=== PATIENT | male | born 1975 | race Caucasian/White ===

== ENCOUNTER → 2019-05-11 | Outpatient (CLI) | payer BC ==
--- NOTE | 2019-05-11 15:09 | US ---
EXAMINATION TYPE: US thyroid st tissue head/neck DATE OF EXAM: 05/11/2019 COMPARISON: NONE CLINICAL HISTORY: A. Patient states having right neck swelling. Patient states he is on antibiotics and swelling has gone down. Area of swelling and concern scanned at right neck. Contralateral images taken. Multiple lymph node appearing lesions seen at right neck, largest=2.2 x 1.3 x 0.9 cm. Parotid gland v isualized and does appear larger in size compared to contralateral side. Portion of the right paroti d gland as measured at 2.6 x 1.8 cm, larger than on the left that measures 1.9 x 1.2 cm. There is als o abnormal echogenicity of the right parotid gland. IMPRESSION: Abnormal echogenicity and asymmetric enlargement of the right parotid gland in compariso n to the left, most commonly representing sialoadenitis. Prominent but nonenlarged surrounding lymph nodes are seen measuring up to 9 mm in short axis.
== END | disposition home or self-care (01) ==
LOC: RADUSWWP 14:17
PROVIDERS: ATTEND Family Medicine
DX: K11.20 Sialoadenitis, unspecified (principal)
CPT/HCPCS: 76536

== ENCOUNTER 2020-07-13 09:45 | Emergency (ER) | payer BC ==
[2020-07-13 09:50] VITALS: TEMP 98.1
[2020-07-13] MEDS ORDERED: HYDROmorphone 1 MG/ML 1 ML SYRINGE IVP STA (09:59)
[2020-07-13] MEDS ORDERED: ONDANSETRON 4 MG/2 ML VIAL IVP STA (09:59)
[2020-07-13] MEDS ORDERED: SODIUM CHLORIDE 0.9% 500 ML 500 ML IV STA (09:59)
--- NOTE | 2020-07-13 10:02 | ED ---
General Adult HPI - General Chief complaint: Abdominal Pain Stated complaint: abd pain Time Seen by Provider: 07/13/20 09:50 Source: patient, RN notes reviewed, old records reviewed Mode of arrival: ambulatory Limitations: no limitations - History of Present Illness Initial comments: This is a 45-year-old male who presents emergency Department stating last night he had a little bit of abdominal pain but he woke up this morning and about one hour ago he started having severe upper abdominal pain. Patient states he also noticed a lump there. Patient states about 6 months ago he noticed at one time but it did not stay. Patient states she did not follow up because of COVID. Patient denies any nausea vomiting per patient denies any radiation of the pain. Patient denies any diarrhea. Patient denies any previous abdominal surgeries. Patient denies any chest pain difficulty breathing shortness of breath. - Related Data Home Medications Medication Instructions Recorded Confirmed Etanercept [Enbrel Mini] 50 mg SQ Q7D 07/13/20 07/13/20 Allergies Allergy/AdvReac Type Severity Reaction Status Date / Time No Known Allergies Allergy Verified 07/13/20 10:26 Review of Systems ROS Statement: Those systems with pertinent positive or pertinent negative responses have been documented in the HPI. ROS Other: All systems not noted in ROS Statement are negative. Past Medical History Additional Past Medical History / Comment(s): RA History of Any Multi-Drug Resistant Organisms: None Reported Past Surgical History: No Surgical Hx Reported Past Psychological History: No Psychological Hx Reported Smoking Status: Current every day smoker Past Alcohol Use History: Occasional Past Drug Use History: Marijuana General Exam - General Exam Comments Initial Comments: GENERAL: Patient is well-developed and well-nourished. Patient is nontoxic and well-hy drated and is in mild distress. ENT: Neck is soft and supple. No significant lymphadenopathy is noted. Oropharynx is clear. Moist mucous membranes. Neck has full range of motion without eliciting any pain. EYES: The sclera were anicteric and conjunctiva were pink and moist. Extraocular move ments were intact and pupils were equal round and reactive to light. Eyelids were unremarkable. PULMONARY: Unlabored respirations. Good breath sounds bilaterally. No audible rales rhonchi or wheezing was noted. CARDIOVASCULAR: There is a regular rate and rhythm without any murmurs gallops or rubs. ABDOMEN: Epigastric region was extremely tender to palpate. Patient also had a lump in that area consistent with a ventral hernia. SKIN: Skin is clear with no lesions or rashes and otherwise unremarkable. NEUROLOGIC: Patient is alert and oriented x3. Cranial nerves II through XII are grossly intact. Motor and sensory are also intact. Normal speech, volume and content. Symmetrical smile. MUSCULOSKELETAL: Normal extremities with adequate strength and full range of motion. No lower extremity swelling or edema. No calf tenderness. LYMPHATICS: No significant lymphadenopathy is noted PSYCHIATRIC: Normal psychiatric evaluation. Limitations: no limitations Course Vital Signs 07/13/20 07/13/20 09:47 11:14 Temperature 98.1 F Pulse Rate 75 81 Respiratory 18 16 Rate Blood Pressure 175/119 150/99 O2 Sat by Pulse 98 99 Oximetry Medical Decision Making - Medical Decision Making Patient had what appeared to be a ventral hernia in the epigastric region. After the patient came back from CAT scan and I had him lying flat with his knee s up and the hernia reduced and he was no longer in pain. CAT scan did show a hernia in the epigastric region but there was no bowel entrapment and the hernia at this time. Patient is aware that he needs follow-up with Dr. Blackwell to get this hernia repair. - Lab Data Result diagrams: 07/13/20 10:12 07/13/20 10:12 Lab Results 07/13/20 07/13/20 07/13/20 Range/Units 10:12 10:12 10:12 WBC 7.1 (3.8-10.6) k/uL RBC 5.51 (4.30-5.90) m/uL Hgb 16.8 (13.0-17.5) gm/dL Hct 53.3 H (39.0-53.0) % MCV 96.8 (80.0-100.0) fL MCH 30.6 (25.0-35.0) pg MCHC 31.6 (31.0-37.0) g/dL RDW 13.1 (11.5-15.5) % Plt Count 241 (150-450) k/uL Neutrophils % 55 % Lymphocytes % 29 % Monocytes % 8 % Eosinophils % 5 % Basophils % 1 % Neutrophils # 3.9 (1.3-7.7) k/uL Lymphocytes # 2.0 (1.0-4.8) k/uL Monocytes # 0.6 (0-1.0) k/uL Eosinophils # 0.3 (0-0.7) k/uL Basophils # 0.1 (0-0.2) k/uL Sodium 137 (137-145) mmol/L Potassium 4.8 (3.5-5.1) mmol/L Chloride 107 (98-107) mmol/L Carbon Dioxide 26 (22-30) mmol/L Anion Gap 4 mmol/L BUN 13 (9-20) mg/dL Creatinine 1.16 (0.66-1.25) mg/dL Est GFR (CKD-EPI)AfAm 87 (>60 ml/min/1.73 sqM) Est GFR (CKD-EPI)NonAf 75 (>60 ml/min/1.73 sqM) Glucose 105 H (74-99) mg/dL Plasma Lactic Acid Elmer 1.4 (0.7-2.0) mmol/L Calcium 9.9 (8.4-10.2) mg/dL Total Bilirubin 0.6 (0.2-1.3) mg/dL AST 25 (17-59) U/L ALT 28 (4-49) U/L Alkaline Phosphatase 134 H (38-126) U/L Total Protein 7.2 (6.3-8.2) g/dL Albumin 4.2 (3.5-5.0) g/dL Amylase 69 (30-110) U/L Lipase 211 (23-300) U/L Disposition Clinical Impression: Ventral hernia Disposition: HOME SELF-CARE Condition: Good Instructions (If sedation given, give patient instructions): Ventral Hernia (ED) Is patient prescribed a controlled substance at d/c from ED?: No Referrals: Santhosh Baker DO [Primary Care Provider] - 1-2 days Danielito Blackwell MD [STAFF PHYSICIAN] - 1-2 days Time of Disposition: 11:20
[2020-07-13 10:27] LABS: Basophils # (A) 0.1 k/uL (0-0.2); Basophils % (A) 1 %; Eosinophils # (A) 0.3 k/uL (0-0.7); Eosinophils % (A) 5 %; HCT 53.3 % (39.0-53.0); HGB 16.8 gm/dL (13.0-17.5); Lymphocytes % (A) 29 %; MCH 30.6 pg (25.0-35.0); MCHC 31.6 g/dL (31.0-37.0); MCV 96.8 fL (80.0-100.0); Mean Platelet Volume 8.2; Monocytes # (A) 0.6 k/uL (0-1.0); Monocytes % (A) 8 %; Neutrophils # (A) 3.9 k/uL (1.3-7.7); Neutrophils % (A) 55 %; Platelet Count 241 k/uL (150-450); RBC 5.51 m/uL (4.30-5.90); RDW 13.1 % (11.5-15.5); WBC 7.1 k/uL (3.8-10.6)
[2020-07-13 10:35] LABS: Albumin 4.2 g/dL (3.5-5.0); Calcium 9.9 mg/dL (8.4-10.2); Potassium 4.8 mmol/L (3.5-5.1); Total Bilirubin 0.6 mg/dL (0.2-1.3); Total Protein 7.2 g/dL (6.3-8.2)
[2020-07-13 11:17] VITALS: BP 150/99; PULSE 81; RESP 16
--- NOTE | 2020-07-13 11:20 | CT ---
EXAMINATION TYPE: CT abdomen pelvis w con DATE OF EXAM: 07/13/2020 COMPARISON: None. HISTORY: Abdominal pain, right upper quadrant CT DLP: 1009.2 mGycm, Automated Exposure Control for Dose Reduction was Utilized. CONTRAST: CT scan of the abdomen and pelvis is performed without oral but with with IV Contrast, patient inject ed with 100 ml mL of Isovue 300. FINDINGS: LUNG BASES: Dependent atelectasis both bases. LIVER/GB: Visualized liver hypodense relative to the spleen consistent with mild diffuse fatty infilt ration. PANCREAS: No significant abnormality is seen. SPLEEN: No significant abnormality is seen. ADRENALS: No significant abnormality is seen. KIDNEYS: Symmetric corticomedullary uptake and excretion without hydronephrosis seen bilaterally. BOWEL: Small sized hiatal hernia. Suboptimal evaluation of bowel without enteric contrast. No suspici ous small or large bowel dilatation is seen. Terminal ileum appears within normal limits extending po steriorly. There is abnormal thickening of the base of the appendix up to 13 mm on axial image 60 wit h mild to moderate linear mucosal enhancement and mucosal wall thickening thought present. Appendix i s seen extending posteriorly from the base of cecum with tapering towards the tip. Mild wall irregula rity without significant surrounding fat stranding or fluid noted. PROSTATE/SEMINAL VESICLES: Prostate gland upper limits of normal bulging on bladder base. LYMPH NODES: No greater than 1cm abdominal or pelvic lymph nodes are appreciated. OSSEOUS STRUCTURES: Mild to moderate disc space narrowing and moderate anterior spurring at L5-S1 lev el. OTHER: In the anterior abdominal wall epigastric region there is a tiny fat-containing hernia axial i mage 31 with mild surrounding fat stranding. Just inferior to this to the left of midline there is se cond fat-containing hernia above the umbilicus seen best coronal image 7. There is moderate-sized umb ilical hernia containing fat and tiny mesenteric vessels axial image 50. IMPRESSION: 1. Mild fat stranding is present in the anterior midline epigastric fat-containing ventral wall herni a could reflect product of resolving inflammation or ischemia. 2. Abnormal appearance of the appendix as detailed above without significant surrounding fat strandin g or inflammation, acute appendicitis cannot be excluded in the appropriate clinical setting. ER doct or says patient's findings and lab work up do not correlate.
[2020-07-13 11:24] LABS: Appearance,Urine Clear (Clear); Bilirubin,Urine Negative (Negative); Blood,Urine Negative (Negative); Color,Urine Light Yellow; Glucose,Urine (UA) Negative (Negative); Ketones,Urine Negative (Negative); Leukocyte Esterase,Urine Negative (Negative); Nitrite,Urine Negative (Negative); PH, Urine 7.5 (5.0-8.0); Protein,Urine Negative (Negative); Urobilinogen,Urine <2.0 mg/dL (<2.0)
== END 2020-07-13 11:23 | disposition home or self-care (01) ==
LOC: EC 09:45
DX: K43.9 Ventral hernia without obstruction or gangrene (principal); M06.9 Rheumatoid arthritis, unspecified; F17.200 Nicotine dependence, unspecified, uncomplicated; Z79.899 Other long term (current) drug therapy
CPT/HCPCS: 36415; 80053; 82150; 83605; 83690; 85025; 81003; 74177; 99284; 96374; 96375; 96361; J2405; J1170; Q9967

== ENCOUNTER 2020-08-14 06:38 | Day surgery (SDC) | payer BC ==
[2020-08-13 08:26] VITALS: BMI 24.7
[~2020-08-14 06:38] MED LIST: ACETAMINOPHEN TAB 500 MG TAB PO PRN; DEXAMETHASONE SOD PHOSPHATE 4 MG/ML 1 ML VIAL IV ONE; HEPARIN SODIUM,PORCINE 5,000 UNIT/ML 1 ML VIAL SQ PRN; LACTATED RINGERS 1,000 ML IV SCH; ONDANSETRON 4 MG/2 ML VIAL IVP ONE
[2020-08-14] MEDS ORDERED: LIDOCAINE 1% (10MG/ML) FOR IV START INTRADERMA ONE (07:26)
[2020-08-14] MEDS ORDERED: MIDAZOLAM 2 MG/2 ML VIAL IVP ONE (08:00)
[2020-08-14] MEDS ORDERED: fentaNYL (PF) 50 MCG/ML 2 ML AMP IVP ONE (08:01)
--- NOTE | 2020-08-14 08:16 | P.ANPRN ---
Procedure Note - Anesthesia - Nerve Block Performed Bilateral Rectus Abdominis Single Time Out Performed: Yes Date of Procedure: 08/14/20 Procedure Start Time: 07:59 Procedure Stop Time: 08:08 Location of Patient: PreOp Indication: Requested by Surgeon Specifically requested for management of pain by DrSilvia: Danielito Blackwell Sedation Type: Sedate with meaningful contact maintained Preparation: Sterile Prep Position: Supine Needle Types: Pajunk Needle Gauge: 21 Ultrasound used to visualize needle placement: Yes Ultrasound used to observe medication spread: Yes Injectate: 0.5% Ropivacaine (see comment for volume) (20 ml per side + Dexamethason 4 mg per side) Blood Aspirated: No Pain Paresthesia on Injection Noted: No Resistance on Injection: Normal Image Stored and Saved: Yes Events: Uneventful and Well Tolerated
--- NOTE | 2020-08-14 08:31 | P.GSHP ---
History of Present Illness H&P Date: 08/14/20 Chief Complaint: Umbilical and ventral hernia This a 45-year-old male who presents today for laparoscopic robotic-assisted repair of umbilical and ventral hernia. Past Medical History Past Medical History: GERD/Reflux, Hypertension, Rheumatoid Arthritis (RA) Additional Past Medical History / Comment(s): no Rx for BP, History of Any Multi-Drug Resistant Organisms: None Reported Past Surgical History: Adenoidectomy, Tonsillectomy Past Anesthesia/Blood Transfusion Reactions: No Reported Reaction Smoking Status: Current every day smoker - Past Family History Mother Family Medical History: No Reported History Medications and Allergies Home Medications Medication Instructions Recorded Confirmed Type Vitamin C(Dose Unknown) 1 tab PO DAILY 08/13/20 08/14/20 History Allergies Allergy/AdvReac Type Severity Reaction Status Date / Time No Known Allergies Allergy Verified 08/14/20 07:09 Surgical - Exam Vital Signs Temp Pulse Resp BP Pulse Ox 98.0 F 69 16 147/95 97 08/14/20 07:12 08/14/20 07:12 08/14/20 07:12 08/14/20 07:12 08/14/20 07:12 - General well developed, well nourished, no distress - Eyes PERRL - ENT normal pinna - Neck no masses - Respiratory normal expansion - Cardiovascular Rhythm: regular - Abdomen Abdomen: soft, non tender Hernia: epigastric (3 cm reducible), umbilical (2 cm) Assessment and Plan Assessment: Umbilical and ventral hernia. We'll perform laparoscopic robotic-assisted repair.
[2020-08-14] MEDS ORDERED: DEXAMETHASONE SOD PHOSPHATE 4 MG/ML 1 ML VIAL ONE (08:53)
[2020-08-14] MEDS ORDERED: PROPOFOL 10 MG/ML 20 ML VIAL IV ONE (08:53)
[2020-08-14] MEDS ORDERED: LIDOCAINE 1% INJ 10MG/ML (20 ML MDV) ONE (08:53)
[2020-08-14] MEDS ORDERED: ROCURONIUM 10 MG/ML (10 ML VIAL) IV ONE (08:53)
[2020-08-14] MEDS ORDERED: GLYCOPYRROLATE 0.2 MG/ML 2 ML VIAL ONE (08:53)
[2020-08-14] MEDS ORDERED: NEOSTIGMINE 1 MG/ML 10 ML VIAL ONE (08:53)
[2020-08-14] MEDS ORDERED: fentaNYL (PF) 50 MCG/ML 2 ML AMP ONE (08:53)
[2020-08-14] MEDS ORDERED: MIDAZOLAM 2 MG/2 ML VIAL ONE (08:53)
[2020-08-14] MEDS ORDERED: KETAMINE 10 MG/ML 20 ML VIAL ONE (08:53)
[2020-08-14] MEDS ORDERED: SUCCINYLCHOLINE CHLORIDE 100 MG/5 ML SYR IV ONE (08:53)
[2020-08-14] MEDS ORDERED: ROPIVACAINE 5 MG/ML 30 ML VIAL ONE (08:53)
[2020-08-14] MEDS ORDERED: BUPIVACAINE (PF) 0.25% 30 ML VIAL SQ ONE (09:11)
[2020-08-14] MEDS ORDERED: LACTATED RINGERS 1,000 ML IV ONE ×4 (09:27→10:44)
[2020-08-14] MEDS: HYDROmorphone 0.5 MG/0.5 ML SYRINGE IVP PRN ×5 (10:15→10:48)
[2020-08-14 10:17] VITALS: TEMP 97.1
--- NOTE | 2020-08-14 10:17 | P.OP ---
Date of Procedure: 08/14/20 Preoperative Diagnosis: Umbilical and ventral hernia Postoperative Diagnosis: Umbilical and incarcerated ventral hernia Procedure(s) Performed: Laparoscopic robotic-assisted repair of umbilical incarcerated ventral hernia Partial omentectomy Anesthesia: POLY Surgeon: Danielito Blackwell Pathology: other (Omentum) Condition: stable Disposition: PACU Description of Procedure: RThe patient was placed on the operating table in the supine position. He received general anesthesia. His abdomen was prepped and draped usual fashion. Using a 5 mm optical trocar under direct visualization the peritoneal cavity was entered in the left upper quadrant. The abdomen was then insufflated. The l aparoscope was placed back into the perineal cavity. Next a 8 mm robotic trocar was placed in the left lower quadrant and a 12 mm robotic trocar was placed in the left lateral position. The original 5 mm trocar was exchanged for a 8 mm robotic trocar. The patient's placed in the left side up position. And the patient was undocked the robot. The umbilical hernia was visualized. Using hook cautery the peritoneum over the umbilical hernia was excised. Ex, the ventral hernia was visualized. The incarcerated omentum was then dissected free using cautery and sent to pathology. The fascial opening was repaired using 0V LOC suture. Next a piece of 11 cm round ventral light ST mesh was placed into the. Cavity and secured with 2 OV lock suture. The patient was undocked the robot. The needles were retrieved. The fascia of the 12 mm trocar site was closed with 0 Ethibond suture. Skin was closed interrupted 3-0 Monocryl suture. Dermabond dressings was applied. Patient top procedure well and was sent to recovery room stable condition.
[2020-08-14] MEDS ORDERED: ONDANSETRON 4 MG/2 ML VIAL IVP ONE (10:53)
[2020-08-14 11:58] VITALS: RESP 18
[2020-08-14 12:31] VITALS: BP 137/91; PULSE 89
== END 2020-08-14 12:30 | disposition home or self-care (01) ==
LOC: OR 06:38
PROVIDERS: ATTEND Surgery
DX: K42.9 Umbilical hernia without obstruction or gangrene (principal); K43.6 Other and unspecified ventral hernia with obstruction, without gangrene; K21.9 Gastro-esophageal reflux disease without esophagitis; I10 Essential (primary) hypertension; M06.9 Rheumatoid arthritis, unspecified; Z98.890 Other specified postprocedural states; F17.210 Nicotine dependence, cigarettes, uncomplicated
CPT/HCPCS: 49653; S2900; 64488; 88305